=== PATIENT | female | born 1995 | race Caucasian/White ===

== ENCOUNTER 2017-06-11 11:59 | Emergency (ER) | payer BC ==
[2017-06-11 12:11] VITALS: BP 108/80; PULSE 60; RESP 16; TEMP 97.9; O2SAT 99
--- NOTE | 2017-06-11 12:50 | EDPHY ---
H & P Stated Complaint: L calf pain/swelling;sent from for eval Time Seen by Provider: 06/11/17 12:21 HPI/ROS: CHIEF COMPLAINT: left knee pain HISTORY OF PRESENT ILLNESS: 21-year-old female presents emergency department complaining of left knee and calf pain x4 days. Patient reports she woke up noticing a small bruise behind her left knee 4 days ago, she does not recall any trauma. Since that time she has had cramping and pain in her lateral knee and calf. Patient reports no known trauma, no recent travel, no history of blood clots. Patient does not take hormones, she does not smoke cigarettes. No chest pain or shortness of breath, no previous left knee pain. REVIEW OF SYSTEMS: A comprehensive 10 point review of systems is otherwise negative aside from elements mentioned in the history of present illness. Source: Patient Exam Limitations: No limitations - Personal History LMP (Females 10-55): 8-14 Days Ago Current Tetanus Diphtheria and Acellular Pertussis (TDAP): Unsure - Medical/Surgical History Other PMH: healthy - Family History Significant Family History: No pertinent family hx - Social History Smoking Status: Never smoked - Physical Exam Exam: GEN: Awake, alert, oriented, no acute distress RESP: nl resp effort MSK: Left knee with no swelling, small 3 mm x 3 mm area of ecchymosis behind left knee, full active range of motion, tenderness to palpation to lateral joint line, positive varus stress, negative valgus stress, negative Cici's, negative drawer, 2+ pedal pulses, sensation intact to light touch SKIN: No rash, no break in skin Constitutional: Initial Vital Signs Temperature (C) 36.6 C 06/11/17 12:08 Heart Rate 60 06/11/17 12:08 Respiratory Rate 16 06/11/17 12:08 Blood Pressure 108/80 06/11/17 12:08 O2 Sat (%) 99 06/11/17 12:08 O2 Delivery Mode Room Air Allergies/Adverse Reactions: No Known Allergies Allergy (Unverified 06/11/17 12:07) Home Medications: Medication Instructions Recorded Dexlansoprazole [Dexilant] 30 mg PO DAILY 06/11/17 Levothyroxine [Synthroid 88 mcg 88 mcg PO DAILY06 06/11/17 (*)] Medical Decision Making - Diagnostics Imaging: Discussed imaging studies w/ call center associate Radiologist, I viewed and interpreted images myself ED Course/Re-evaluation: Left knee ultrasound negative for DVT, x-ray normal. Pt placed in an wicho wrap and given ortho for follow up. Departure - Departure Disposition: Home, Routine, Self-Care Clinical Impression: Left knee pain Qualifiers: Chronicity: acute Qualified Code(s): M25.562 - Pain in left knee Condition: Good Instructions: Knee Pain (ED) Additional Instructions: Rest, ice, elevate, take 600 mg of ibuprofen every 8 hours with food for 3-5 days, wear Wicho wrap for comfort. Follow up with orthopedist for pain that is not improving in the next 5-7 days. Referrals: Conrad Mauro MD [Medical Doctor] - As per Instructions (Orthopedist on-call)
== END 2017-06-11 13:41 | disposition home or self-care (01) ==
DX: M25.562 Pain in left knee (principal)